=== PATIENT | female | born 1955 | race American Indian/Alaskan Native ===

== ENCOUNTER 2017-05-02 13:17 | Outpatient (CLI) | payer OTHER ==
--- NOTE | 2017-05-03 08:22 | XRay Report ---
XRAY RIGHT KNEE 4 THREE VIEWS: 05/02/17 13:17:00 CLINICAL: Knee pain. FINDINGS: Mild osteopenia. Mild medial joint space narrowing with small osteophytes. The lateral joint space is normal. Calcification of the proximal attachment of the lateral collateral ligament and irregularity at the lateral aspect of the lateral tibial plateau which suggests an old fracture.. No acute fracture or dislocation. Patellofemoral joint osteoarthritis with small osteophytes. A tiny quadriceps insertion enthesophyte. No joint effusion.Normal soft tissues. 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 Calcification of the lateral collateral ligament and remodeling of the lateral tibial plateau are consistent with a remote traumatic injury.
== END 2017-05-02 13:18 | disposition home or self-care (01) ==
LOC: SPVIMAG 13:17
PROVIDERS: ATTEND Orthopaedic Surgery
DX: M17.11 Unilateral primary osteoarthritis, right knee (principal); M85.861 Other specified disorders of bone density and structure, right lower leg; M25.861 Other specified joint disorders, right knee